=== PATIENT | female | born 1955 | race Caucasian/White ===

== ENCOUNTER 2016-09-20 16:02 | Emergency (ER) | payer MEDICARE, MEDICAID ==
[~2016-09-20] VITALS: Ht 162.6 cm; Wt 69.9 kg
[~2016-09-20 16:02] MED LIST: LEVO25TA7 PO
[2016-09-20 16:06] VITALS: BP 137/91
== END 2016-09-20 16:24 | disposition home or self-care (01) ==
LOC: ER 16:03
DX: Z00.00 Encounter for general adult medical examination without abnormal findings (principal); Z76.0 Encounter for issue of repeat prescription; E03.9 Hypothyroidism, unspecified; F32.9 Major depressive disorder, single episode, unspecified; F41.9 Anxiety disorder, unspecified; F20.9 Schizophrenia, unspecified
CPT/HCPCS: 99281; A4606; Z7502; Z7610

== ENCOUNTER 2016-09-25 18:46 | Emergency (ER) | payer MEDICARE, MEDICAID ==
[~2016-09-25] VITALS: Ht 162.6 cm; Wt 65.8 kg
--- NOTE | 2016-09-25 18:55 | NUR ---
PATIENT BIB RA D/T NAUSEA / VOMITING AT HOME. PATIENTS VITALS REMAIN STABLE. A/OX 3. NO SOB. PATIENT PROVIDED WITH COMFORT AND SAFETY MEASURES. AWAITING MD ORDERS.
[2016-09-25] MEDS ORDERED: LORAZEPAM 1 MG TABLET ONE (18:58)
[2016-09-25] MEDS ORDERED: LORAZEPAM 1 MG TABLET PO ONE (19:00)
[2016-09-25] MEDS ORDERED: ONDANSETRON HCL 4 MG/5 ML SOLUTION ONE (19:03)
--- NOTE | 2016-09-25 19:13 | NUR ---
MEDICATED PATIENT WITH ORAL ATIVAN AND ZOFRAN. TOLERATED WELL. NO VOMITING CURRENTLY, BUT STILL C/O NAUSEA. ENDORSED TO EVELYN MCKAY FOR TOMASA
[2016-09-25] MEDS ORDERED: ONDANSETRON HCL 4 MG/5 ML SOLUTION PO ONE (19:30)
--- NOTE | 2016-09-25 20:01 | NUR ---
Patient discharged to home in stable condition. Written and verbal after care instructions given. Patient verbalizes understanding of instruction. Patient is ambulatory with steady gait, no further complaints.
[2016-09-25 20:02] VITALS: BP 138/74
== END 2016-09-25 20:02 | disposition home or self-care (01) ==
LOC: ER 18:47
DX: F41.9 Anxiety disorder, unspecified (principal); F20.9 Schizophrenia, unspecified; F32.9 Major depressive disorder, single episode, unspecified; E03.9 Hypothyroidism, unspecified; Z88.0 Allergy status to penicillin; Z88.1 Allergy status to other antibiotic agents
CPT/HCPCS: 71010; 93005; 99284; A4606; Q0162; Z7610

== ENCOUNTER 2018-07-11 15:23 | Emergency (ER) | payer MEDICARE, MEDICAID ==
[~2018-07-11] VITALS: Ht 165.1 cm; Wt 70.3 kg
--- NOTE | 2018-07-11 15:36 | NUR ---
PT BIBFATHER FOR CP X 1WEEK; PT AAOX4, PT ON MONITOR, VSS, NAD NOTED, PENDING MD RODRIGUES
[2018-07-11 15:58] LABS: BASOPHILS % (AUTO) 0.3 % (0.0-2.0); EOSINOPHILS % (AUTO) 0.2 % (0.0-6.0); HEMATOCRIT 45 % (33-45); HEMOGLOBIN 15.8 g/dL (11.5-14.8); LYMPHOCYTES # (AUTO) 2.3 /CMM (0.8-4.8); LYMPHOCYTES % (AUTO) 21.8 % (20.0-44.0); MEAN CORPUSCULAR HGB CONC 36 g/dl (31.0-36.0); MEAN CORPUSCULAR VOLUME 86 fL (82-100); MONOCYTES # (AUTO) 1.6 /CMM (0.1-1.30); MONOCYTES % (AUTO) 15.2 % (2.0-12.0); NEUTROPHILS # (AUTO) 6.5 /CMM (1.8-8.9); NEUTROPHILS % (AUTO) 62.5 % (43.0-81.0); PLATELET COUNT (AUTO) 324 /CMM (150-450); RED BLOOD CELL COUNT(AUTO) 5.18 MIL/uL (4.0-5.2); WHITE BLOOD COUNT (AUTO) 10.4 K/uL (4.3-11.0)
[2018-07-11] MEDS ORDERED: IV NS 0.9% 1,000 ML BAG IV ONE ×2 (16:00→17:30)
[2018-07-11] MEDS ORDERED: ONDANSETRON HCL/PF 4 MG/2 ML VIAL IVP ONE (16:00)
[2018-07-11] MEDS ORDERED: ONDANSETRON HCL/PF 4 MG/2 ML VIAL ONE (16:04)
[2018-07-11 16:06] LABS: CALCIUM, SERUM 9.7 mg/dL (8.5-10.1); CARBON DIOXIDE 23 mmol/L (21-32); CHLORIDE 93 mmol/L (98-107); CREATININE 0.8 mg/dL (0.6-1.3); GLUCOSE 125 mg/dL (74-106); POTASSIUM 3.1 mmol/L (3.5-5.1); SODIUM SERUM 128 mmol/L (136-145); UREA NITROGEN, BLOOD 16 mg/dL (7-18)
[2018-07-11 16:19] LABS: ALANINE AMINOTRANSFERASE 72 U/L (12-78); ALBUMIN 3.6 g/dL (3.4-5.0); ALKALINE PHOSPHATASE 57 U/L (46-116); ASPARTATE AMINOTRANSFERASE 43 U/L (15-37); B-TYPE NATRIURETIC PEPTIDE 69 PG/ML (0-125); BILIRUBIN,DIRECT 0.1 mg/dL (0.0-0.2); BILIRUBIN,TOTAL 0.6 mg/dL (0.2-1.0); TOTAL PROTEIN, SERUM 7.6 g/dL (6.4-8.2)
[2018-07-11] MEDS ORDERED: IV NS 0.9% 250 ML IV ONE (16:21)
[2018-07-11] MEDS ORDERED: CT SWABBABLE VALVE TRANS SET 1 EA INFUS.SET MC ONE (16:21)
[2018-07-11] MEDS ORDERED: IOHEXOL-350 100 ML VIAL IV ONE (16:21)
[2018-07-11 16:57] LABS: LYMPHOCYTES % (MANUAL) 28 % (16-48); MONOCYTES % (MANUAL) 10 % (0-11.0); NEUTROPHILS % (MANUAL) 62 (42-76)
[2018-07-11 16:59] LABS: D-DIMER 1.46 mg/L(FEU (0.17-0.50)
[2018-07-11] MEDS ORDERED: LORAZEPAM INJ 2 MG/ML VIAL IV ONE (17:30)
[2018-07-11] MEDS ORDERED: POTASSIUM CHLORIDE 20 MEQ TAB.PRT.SR PO ONE ×2 (17:30→17:47)
[2018-07-11] MEDS ORDERED: LORAZEPAM INJ 2 MG/ML VIAL ONE (17:48)
[2018-07-11 18:41] LABS: THYROID STIMULATING HORMONE 0.143 uIU/mL (0.358-3.74)
[2018-07-11] MEDS ORDERED: METOPROLOL TARTRATE INJ 5 MG/5 ML AMPUL ONE (19:09)
[2018-07-11] MEDS ORDERED: METOPROLOL TARTRATE INJ 5 MG/5 ML AMPUL IV ONE (19:30)
--- NOTE | 2018-07-11 19:59 | NUR ---
Patient discharged to home in stable condition. Written and verbal after care instructions given. Patient verbalizes understanding of instruction. IV removed. Catheter intact and site benign. Pressure and 4x4 applied to site. No bleeding noted.
[2018-07-11 20:01] VITALS: BP 133/76
== END 2018-07-11 20:03 | disposition home or self-care (01) ==
LOC: ER 15:28
DX: F41.9 Anxiety disorder, unspecified (principal); E05.90 Thyrotoxicosis, unspecified without thyrotoxic crisis or storm; K21.9 Gastro-esophageal reflux disease without esophagitis; R00.0 Tachycardia, unspecified; F20.9 Schizophrenia, unspecified; F32.9 Major depressive disorder, single episode, unspecified; Z88.0 Allergy status to penicillin; Z88.8 Allergy status to other drugs, medicaments and biological substances; Z79.899 Other long term (current) drug therapy
CPT/HCPCS: 36415; 71045; 71275; 80048; 80076; 83690; 83880; 84439; 84443; 84484; 85025; 85378; 85730; 93005; 96361; 96374; 96375; 99284; J2060; J2405; J3490; J7030 ×2; J7050; Q9967

== ENCOUNTER 2018-07-13 11:03 | Emergency (ER) | payer MEDICARE, MEDICAID ==
[~2018-07-13] VITALS: Ht 162.6 cm; Wt 71.2 kg
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
--- NOTE | 2018-07-13 11:45 | NUR ---
ERMD AT BEDSIDE FOR EVAL.
--- NOTE | 2018-07-13 11:50 | NUR ---
LIVESTOCK TRUCKER AT BEDSIDE FOR BLOOD DRAW.
--- NOTE | 2018-07-13 11:58 | NUR ---
PT TO RADIOLOGY FOR HEAD CT SCAN VIA [facility].
[2018-07-13 12:00] LABS: BASOPHILS % (AUTO) 0.8 % (0.0-2.0); EOSINOPHILS % (AUTO) 0.2 % (0.0-6.0); HEMATOCRIT 41 % (33-45); HEMOGLOBIN 14.2 g/dL (11.5-14.8); LYMPHOCYTES # (AUTO) 1.6 /CMM (0.8-4.8); LYMPHOCYTES % (AUTO) 26.6 % (20.0-44.0); MEAN CORPUSCULAR HGB CONC 34 g/dl (31.0-36.0); MEAN CORPUSCULAR VOLUME 88 fL (82-100); MONOCYTES # (AUTO) 0.8 /CMM (0.1-1.30); MONOCYTES % (AUTO) 12.5 % (2.0-12.0); NEUTROPHILS # (AUTO) 3.6 /CMM (1.8-8.9); NEUTROPHILS % (AUTO) 59.9 % (43.0-81.0); PLATELET COUNT (AUTO) 238 /CMM (150-450); RED BLOOD CELL COUNT(AUTO) 4.71 MIL/uL (4.0-5.2); WHITE BLOOD COUNT (AUTO) 6.1 K/uL (4.3-11.0)
[2018-07-13] MEDS ORDERED: IV NS 0.9% 1,000 ML BAG IV ONE ×2 (12:00→19:00)
[2018-07-13 12:09] LABS: CALCIUM, SERUM 8.8 mg/dL (8.5-10.1); CREATININE 0.7 mg/dL (0.6-1.3); POTASSIUM 3.2 mmol/L (3.5-5.1)
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
--- NOTE | 2018-07-13 13:43 | NUR ---
FAXED REPORTS, AND FACESHEET TO ABELINO @[phone]
--- NOTE | 2018-07-13 14:14 | NUR ---
ATTEMPTED TO CALL BROTHERVLAD,PHONE IS FULL AND UNABLE TO LEAVE A MESSAGE
[2018-07-13] MEDS ORDERED: LORAZEPAM INJ 2 MG/ML VIAL ONE ×2 (14:41→19:13)
--- NOTE | 2018-07-13 14:44 | NUR ---
PT STILL NOTED TO BE TACHYCARDIC AND HYPERTENSIVE. DR SALINAS AWARE. MEDICATED ORDERED.
--- NOTE | 2018-07-13 14:48 | NUR ---
SPOKE WITH ABELINO; PT GOING TO ROOM [facility]-2. CALL [phone] [phone] TO GIVE REPORT. CALL BACK NUMBER FOR ABELINO .
[2018-07-13] MEDS ORDERED: LORAZEPAM INJ 2 MG/ML VIAL IV ONE ×2 (15:00→19:00)
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
--- NOTE | 2018-07-13 17:37 | NUR ---
CALL FROM ABELINO FROM [facility],[phone], ACCEPTED BY DR STEPHENSON, RETORT LOADER CONSULTING,REPORT TO [phone]
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
--- NOTE | 2018-07-13 17:49 | NUR ---
REPORT GIVEN TO RAINER MCKAY AT [facility]. AWAITING TRANSFER TO FLOOR.
--- NOTE | 2018-07-13 19:17 | NUR ---
REPROT TO JR MCKAY FOR TOMASA.
--- NOTE | 2018-07-13 19:28 | NUR ---
RAMIREZ FROM [facility] CALLED WITH NEW ETA OF 2129.
[2018-07-13] MEDS ORDERED: HALOPERIDOL 1 MG TABLET PO ONE (19:30)
[2018-07-13] MEDS ORDERED: BENZTROPINE MESYLATE (1 MG) 1 MG TABLET PO ONE (19:30)
[2018-07-13] MEDS ORDERED: HALOPERIDOL 5 MG TABLET ONE (19:35)
[2018-07-13] MEDS ORDERED: BENZTROPINE MESYLATE (1 MG) 1 MG TABLET ONE (19:35)
--- NOTE | 2018-07-13 19:40 | NUR ---
PT REFUSED MEDICATION. AWARE.
[2018-07-13] MEDS ORDERED: METOPROLOL TARTRATE INJ 5 MG/5 ML AMPUL IV ONE (21:30)
--- NOTE | 2018-07-13 21:40 | NUR ---
CALLED [facility]; SECOND DELAY OF ETA OF 30 MINS.
[2018-07-13] MEDS ORDERED: METOPROLOL TARTRATE INJ 5 MG/5 ML AMPUL ONE (22:01)
[2018-07-13 22:15] VITALS: BP 116/88
--- NOTE | 2018-07-13 22:20 | NUR ---
AMAURI HERE PARTS CLERK PLANT MAINTENANCE. REPORT GIVEN TO FREDERIC FROM [facility] FOR TOMASA.
== END 2018-07-13 22:51 | disposition short-term general hospital (02) ==
LOC: ER 11:10
DX: G93.40 Encephalopathy, unspecified (principal); G93.9 Disorder of brain, unspecified; R94.31 Abnormal electrocardiogram [ECG] [EKG]; F20.9 Schizophrenia, unspecified; F32.9 Major depressive disorder, single episode, unspecified; F41.9 Anxiety disorder, unspecified; E03.9 Hypothyroidism, unspecified; Z88.0 Allergy status to penicillin; Z88.8 Allergy status to other drugs, medicaments and biological substances; Z79.899 Other long term (current) drug therapy
CPT/HCPCS: 36415; 70450; 71045; 80048; 80305; 80307; 85025; 93005; 96361; 96374; 96376; 99285; A6402; J2060 ×2; J7030 ×2; G0480; J3490

== ENCOUNTER 2018-10-21 18:04 | Inpatient (IN) | payer MEDICARE, MEDICAID ==
[~2018-10-21] VITALS: Ht 162.6 cm; Wt 72.6 kg
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
[2018-10-21 18:40] LABS: BASOPHILS % (AUTO) 0.6 % (0.0-2.0); EOSINOPHILS % (AUTO) 1.2 % (0.0-6.0); HEMATOCRIT 40 % (33-45); HEMOGLOBIN 13.3 g/dL (11.5-14.8); LYMPHOCYTES # (AUTO) 1.2 /CMM (0.8-4.8); LYMPHOCYTES % (AUTO) 31.7 % (20.0-44.0); MEAN CORPUSCULAR HGB CONC 34 g/dl (31.0-36.0); MEAN CORPUSCULAR VOLUME 86 fL (82-100); MONOCYTES # (AUTO) 0.4 /CMM (0.1-1.30); MONOCYTES % (AUTO) 10.7 % (2.0-12.0); NEUTROPHILS # (AUTO) 2.1 /CMM (1.8-8.9); NEUTROPHILS % (AUTO) 55.8 % (43.0-81.0); PLATELET COUNT (AUTO) 208 /CMM (150-450); RED BLOOD CELL COUNT(AUTO) 4.59 MIL/uL (4.0-5.2); WHITE BLOOD COUNT (AUTO) 3.8 K/uL (4.3-11.0)
[2018-10-21 18:56] LABS: ACETAMINOPHEN < 2 ug/ml (10-30); ALANINE AMINOTRANSFERASE 23 U/L (12-78); ALBUMIN 3.6 g/dL (3.4-5.0); ALCOHOL, BLOOD < 3 mg/dL (0-0); ALKALINE PHOSPHATASE 76 U/L (46-116); ASPARTATE AMINOTRANSFERASE 18 U/L (15-37); BILIRUBIN,DIRECT 0.1 mg/dL (0.0-0.2); BILIRUBIN,TOTAL 0.7 mg/dL (0.2-1.0); CALCIUM, SERUM 9.1 mg/dL (8.5-10.1); CARBON DIOXIDE 29 mmol/L (21-32); CHLORIDE 103 mmol/L (98-107); CREATININE 0.6 mg/dL (0.6-1.3); GLUCOSE 107 mg/dL (74-106); SALICYLATE 1.4 mg/dL (2.8-20.0); SODIUM SERUM 138 mmol/L (136-145); TOTAL PROTEIN, SERUM 7.3 g/dL (6.4-8.2); UREA NITROGEN, BLOOD 5 mg/dL (7-18)
[2018-10-21 19:02] LABS: APPEARANCE,URINE Clear (CLEAR); BILIRUBIN,URINE Negative (NEGATIVE); BLOOD, URINE Negative Ery/uL (NEGATIVE); COLOR,URINE Yellow (YELLOW); KETONES,URINE Negative (NEGATIVE); LEUKOCYTE ESTERASE ,URINE Negative (NEGATIVE); NITRITE, URINE Negative (NEGATIVE); PH,URINE 7.5 (5.0-8.0); PROTEIN,URINE Negative (NEGATIVE); UGLUCOSE Negative (NEGATIVE); UROBILINOGEN,URINE 0.2 EU/dL (0.2)
--- NOTE | 2018-10-21 19:19 | NUR ---
ENDORSED TO ABBE MCKAY FOR TOMASA.
--- NOTE | 2018-10-21 19:44 | NUR ---
PINKY ETA 1 HR
--- NOTE | 2018-10-21 21:57 | NUR ---
GPS 213-A
--- NOTE | 2018-10-21 22:05 | NUR ---
REPORT GIVEN TO RENATA
[2018-10-21 22:30] VITALS: BP 145/85
[2018-10-21] MEDS ORDERED: ZOLPIDEM TARTRATE 5 MG TABLET PO PRN (22:30)
[2018-10-21] MEDS ORDERED: MAGNESIUM HYDROXIDE 30 ML UDC PO PRN (22:30)
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
[2018-10-21] MEDS ORDERED: PROP10TA10 PO (23:45)
[2018-10-21] MEDS ORDERED: GABA-534 PO (23:45)
[2018-10-21] MEDS ORDERED: ARIP15TA3 PO (23:45)
[2018-10-21] MEDS ORDERED: HYDR-4384 PO (23:45)
--- NOTE | 2018-10-22 01:21 | NUR ---
AWAKE, NOT SLEEPING, OFFERED SLEEPING PILL, REFUSED. PATIENT STATED, " I DON'T TAKE ANY MEDICATION."
[2018-10-22 06:49] LABS: BASOPHILS % (AUTO) 0.5 % (0.0-2.0); EOSINOPHILS % (AUTO) 0.9 % (0.0-6.0); HEMATOCRIT 36 % (33-45); HEMOGLOBIN 12.3 g/dL (11.5-14.8); LYMPHOCYTES # (AUTO) 1.9 /CMM (0.8-4.8); LYMPHOCYTES % (AUTO) 41.3 % (20.0-44.0); MEAN CORPUSCULAR HGB CONC 34 g/dl (31.0-36.0); MEAN CORPUSCULAR VOLUME 86 fL (82-100); MONOCYTES # (AUTO) 0.5 /CMM (0.1-1.30); MONOCYTES % (AUTO) 11.5 % (2.0-12.0); NEUTROPHILS # (AUTO) 2.1 /CMM (1.8-8.9); NEUTROPHILS % (AUTO) 45.8 % (43.0-81.0); PLATELET COUNT (AUTO) 188 /CMM (150-450); RED BLOOD CELL COUNT(AUTO) 4.18 MIL/uL (4.0-5.2); WHITE BLOOD COUNT (AUTO) 4.6 K/uL (4.3-11.0)
[2018-10-22 06:53] LABS: CHOLESTEROL 168 mg/dL (<200); HDL CHOLESTEROL 49 mg/dL (40-60); LDL 108 mg/dL (0-99); TRIGLYCERIDES 60 mg/dL (30-150)
[2018-10-22 06:57] LABS: ALBUMIN 3.1 g/dL (3.4-5.0); BILIRUBIN,TOTAL 0.5 mg/dL (0.2-1.0); CALCIUM, SERUM 8.9 mg/dL (8.5-10.1); CREATININE 0.8 mg/dL (0.6-1.3); POTASSIUM 4.3 mmol/L (3.5-5.1); TOTAL PROTEIN, SERUM 6.4 g/dL (6.4-8.2)
[2018-10-22 08:00] VITALS: BP 116/75
[2018-10-22] MEDS: PROPRANOLOL HCL 10 MG TABLET PO SCH ×3 (08:57→17:00)
[2018-10-22] MEDS: LEVOTHYROXINE SODIUM 25 MCG TABLET PO SCH (08:57)
[2018-10-22] MEDS: GABAPENTIN 300 MG CAPSULE PO SCH ×2 (08:57→18:14)
[2018-10-22] MEDS: ACETAMINOPHEN 325 MG TABLET PO PRN ×2 (11:05→18:22)
--- NOTE | 2018-10-22 11:05 | NUR ---
GPS RN NOTES Patient stated mild general body aches. Administered Tylenol 650mg PO. Offered fluids and snacks. Will continue to monitor.
[2018-10-22] MEDS: HYDROCODONE/APAP 5/325MG 1 EACH TABLET PO PRN (12:57)
--- NOTE | 2018-10-22 12:57 | NUR ---
GPS RN NOTES Patient stated 8/10 pain on RIGHT SHOULDER and BILATERAL KNEES. Administered Ruthven 5-325mg PO x 1 tab. Encouraged Patient to lay and rest in bed. Patient states that she wants to continue standing. Offered fluids and snacks. Will continue to monitor.
[2018-10-22 16:00] VITALS: BP 124/81
[2018-10-22] MEDS: risperiDONE 1 MG TABLET PO SCH (18:14)
[2018-10-22] MEDS: BENZTROPINE MESYLATE (1 MG) 1 MG TABLET PO SCH (18:14)
--- NOTE | 2018-10-22 18:22 | NUR ---
GPS RN NOTES Patient stated mild BILATERAL KNEE PAIN. Noted Patient standing near doorway throughout shift. Encouraged Patient to sit/lay down on chair/bed. Patient refused. Administered Tylenol 650mg PO per Patients request. Will continue to monitor.
--- NOTE | 2018-10-22 19:05 | NUR ---
HERLINDA (SISTER) --- FOR ANY MEDICAL HISTORY QUESTIONS YOU MAY CONTACT HERLINDA. FOR CONSENTS CONTACT VLAD (BROTHER).
[2018-10-22] MEDS: LORAZEPAM 0.5 MG TABLET PO PRN (19:58)
[2018-10-23] MEDS: HYDROCODONE/APAP 5/325MG 1 EACH TABLET PO PRN ×2 (05:29→19:56)
[2018-10-23] MEDS: LEVOTHYROXINE SODIUM 25 MCG TABLET PO SCH (07:30)
[2018-10-23 08:00] VITALS: BP 100/74
[2018-10-23] MEDS: ACETAMINOPHEN 325 MG TABLET PO PRN (08:36)
[2018-10-23] MEDS: PROPRANOLOL HCL 10 MG TABLET PO SCH ×3 (08:37→17:54)
[2018-10-23] MEDS: BENZTROPINE MESYLATE (1 MG) 1 MG TABLET PO SCH ×2 (08:37→17:57)
[2018-10-23] MEDS: GABAPENTIN 300 MG CAPSULE PO SCH ×2 (08:37→17:57)
[2018-10-23] MEDS: risperiDONE 1 MG TABLET PO SCH ×2 (08:37→17:57)
[2018-10-23] MEDS ORDERED: OLANZAPINE 10 MG VIAL IM PRN (13:00)
[2018-10-23] MEDS: MAG HYDROX/AL HYDROX/SIMETH 30 ML UDC PO PRN ×2 (13:57→19:57)
[2018-10-23] MEDS: LORAZEPAM 0.5 MG TABLET PO PRN (13:57)
[2018-10-23 16:00] VITALS: BP 108/63
[2018-10-23 20:18] VITALS: BP 95/63
[2018-10-24] MEDS: MAG HYDROX/AL HYDROX/SIMETH 30 ML UDC PO PRN ×2 (00:38→22:51)
[2018-10-24] MEDS: ACETAMINOPHEN 325 MG TABLET PO PRN (01:29)
[2018-10-24 08:00] VITALS: BP 96/63
[2018-10-24] MEDS: LEVOTHYROXINE SODIUM 25 MCG TABLET PO SCH (08:00)
[2018-10-24] MEDS: BENZTROPINE MESYLATE (1 MG) 1 MG TABLET PO SCH ×2 (08:46→17:11)
[2018-10-24] MEDS: GABAPENTIN 300 MG CAPSULE PO SCH ×2 (08:46→17:11)
[2018-10-24] MEDS: risperiDONE 1 MG TABLET PO SCH ×2 (08:47→17:11)
[2018-10-24] MEDS: PROPRANOLOL HCL 10 MG TABLET PO SCH ×3 (08:49→17:00)
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
[2018-10-24] MEDS: LORAZEPAM 0.5 MG TABLET PO PRN (11:46)
--- NOTE | 2018-10-24 11:46 | NUR ---
MS RN NOTES PATIENT BECAME ANXIOUS, ATIVAN GIVEN ORDERED. NO ACUTE DISTRESS NOTED. PATIENT VITAL SIGNS WITHIN NORMAL LIMITS. SAFETY MEASURES IN PLACE. WILL CONTINUE TO MONITOR PATIENT.
--- NOTE | 2018-10-24 13:42 | NUR ---
SW spoke to the pt's brother and conservator, Tavo ([phone]), who stated that he is too busy to handle his sister's case at the time with his radio time salesperson job and taking care of his mother as well. Pt's brother/conservator stated that he would like his sister to be notified and updated regarding the pts care. SW stated that she would contact him regarding her discharge. Pts brother stated that he wants to make sure that she will be stable before discharge.
--- NOTE | 2018-10-24 15:12 | NUR ---
Initial Discharge Plan: Pt currently resides at [facility] located at [address] [place], [place] [address]; . Per pt, she does not want to return to the facility. SW will work with the pt and the MD regarding appropriate discharge planning. SW will form a safe and proper discharge.
--- NOTE | 2018-10-24 15:13 | NUR ---
MARSHALL called the pt's sister, Cuort ([phone]), and discussed the pts initial discharge and treatment plan. She stated that she does not want the pt to be discharged home until she is completely stable which is what the pts brother wanted.
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
[2018-10-24 16:00] VITALS: BP 100/55
[2018-10-24] MEDS: HYDROCODONE/APAP 5/325MG 1 EACH TABLET PO PRN (17:58)
[2018-10-24 20:15] VITALS: BP 88/53
[2018-10-25] MEDS: HYDROCODONE/APAP 5/325MG 1 EACH TABLET PO PRN ×2 (06:08→17:28)
[2018-10-25 08:00] VITALS: BP 98/50
[2018-10-25] MEDS: GABAPENTIN 300 MG CAPSULE PO SCH ×2 (08:35→17:29)
[2018-10-25] MEDS: BENZTROPINE MESYLATE (1 MG) 1 MG TABLET PO SCH ×2 (08:35→17:26)
[2018-10-25] MEDS: risperiDONE 1 MG TABLET PO SCH ×2 (08:35→17:00)
[2018-10-25] MEDS: PROPRANOLOL HCL 10 MG TABLET PO SCH ×3 (08:36→17:00)
[2018-10-25] MEDS: LEVOTHYROXINE SODIUM 25 MCG TABLET PO SCH (08:36)
[2018-10-25] MEDS: MAG HYDROX/AL HYDROX/SIMETH 30 ML UDC PO PRN ×3 (09:55→21:40)
[2018-10-25] MEDS: ACETAMINOPHEN 325 MG TABLET PO PRN ×2 (12:56→20:34)
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
[2018-10-25] MEDS ORDERED: INVEGA 234 MG IM ONE (15:00)
[2018-10-25 16:00] VITALS: BP 105/52
--- NOTE | 2018-10-25 20:34 | NUR ---
RN NOTES ADMINISTERED TYLENOL 650 MG ORDERED FOR HEADACHE, AT PATIENT REQUEST. WILL CONTINUE TO MONITOR.
[2018-10-25 20:36] VITALS: BP 98/71
--- NOTE | 2018-10-25 21:40 | NUR ---
RN NOTES ADMINISTERED MAALOX 30ML ORDERED FOR INDIGESTION AT PATIENT REQUEST. WILL CONTINUE TO MONITOR.
[2018-10-26] MEDS: HYDROCODONE/APAP 5/325MG 1 EACH TABLET PO PRN ×2 (06:48→13:21)
[2018-10-26 08:00] VITALS: BP 112/77
[2018-10-26] MEDS: PROPRANOLOL HCL 10 MG TABLET PO SCH ×3 (09:00→17:00)
--- NOTE | 2018-10-26 10:30 | NUR ---
refused all am meds including psych meds.
[2018-10-26] MEDS: LEVOTHYROXINE SODIUM 25 MCG TABLET PO SCH (10:46)
[2018-10-26] MEDS: BENZTROPINE MESYLATE (1 MG) 1 MG TABLET PO SCH ×2 (10:46→17:00)
[2018-10-26] MEDS: GABAPENTIN 300 MG CAPSULE PO SCH ×2 (10:46→17:00)
[2018-10-26] MEDS: risperiDONE 1 MG TABLET PO SCH ×2 (10:47→17:00)
--- NOTE | 2018-10-26 13:11 | NUR ---
refused bp and inderal at this time.
[2018-10-26 16:00] VITALS: BP 130/78
--- NOTE | 2018-10-26 16:02 | NUR ---
Research Assistant Professor Group Session-- Goal: Patient will attend group being held today from 11am -11:45 in the activities room and participate and/or actively listen to peers and be respectful. Intervention: SW invited patient to attend group session with peers regarding: the goal or positive outcome/s each pt. would like to see happen as a result of their stay in [facility]. SW respected patient�s self-determination and will continue to invite patient to future group sessions. Response: Patient declined to participate in today�s group social media marketing manager session. Plan: Patient will be invited to attend next social media marketing manager group held.
[2018-10-26 19:48] VITALS: BP 126/72
[2018-10-26] MEDS: LORAZEPAM 0.5 MG TABLET PO PRN (20:58)
[2018-10-27 08:00] VITALS: BP 106/69
[2018-10-27] MEDS: PROPRANOLOL HCL 10 MG TABLET PO SCH ×3 (09:00→16:07)
[2018-10-27] MEDS: risperiDONE 1 MG TABLET PO SCH ×2 (09:05→16:06)
[2018-10-27] MEDS: GABAPENTIN 300 MG CAPSULE PO SCH ×2 (09:05→16:06)
[2018-10-27] MEDS: LEVOTHYROXINE SODIUM 25 MCG TABLET PO SCH (09:05)
[2018-10-27] MEDS: BENZTROPINE MESYLATE (1 MG) 1 MG TABLET PO SCH ×2 (09:05→16:06)
[2018-10-27] MEDS: HYDROCODONE/APAP 5/325MG 1 EACH TABLET PO PRN (11:22)
[2018-10-27] MEDS: MAG HYDROX/AL HYDROX/SIMETH 30 ML UDC PO PRN (12:18)
--- NOTE | 2018-10-27 12:44 | NUR ---
MARSHALL faxed a [facility] form to the [facility] with attention to Debbie to the fax number: [phone].
[2018-10-27] MEDS: ACETAMINOPHEN 325 MG TABLET PO PRN ×2 (14:24→20:53)
--- NOTE | 2018-10-27 16:08 | NUR ---
Pt. refused to take Propanolol and saying that her BP is not high. Explined on the importance and still refusing
[2018-10-27 16:41] VITALS: BP 111/64
[2018-10-27 20:00] VITALS: BP 118/68
[2018-10-28 08:00] VITALS: BP 113/71
[2018-10-28] MEDS: risperiDONE 1 MG TABLET PO SCH ×2 (08:40→16:54)
[2018-10-28] MEDS: BENZTROPINE MESYLATE (1 MG) 1 MG TABLET PO SCH ×2 (08:41→16:51)
[2018-10-28] MEDS: GABAPENTIN 300 MG CAPSULE PO SCH ×2 (08:41→16:51)
[2018-10-28] MEDS: HYDROCODONE/APAP 5/325MG 1 EACH TABLET PO PRN ×2 (08:41→16:21)
[2018-10-28] MEDS: LEVOTHYROXINE SODIUM 25 MCG TABLET PO SCH (08:42)
[2018-10-28] MEDS: PROPRANOLOL HCL 10 MG TABLET PO SCH ×3 (08:42→16:54)
[2018-10-28] MEDS: ACETAMINOPHEN 325 MG TABLET PO PRN ×2 (12:13→19:40)
[2018-10-28 16:00] VITALS: BP 123/68
[2018-10-28] MEDS: MAG HYDROX/AL HYDROX/SIMETH 30 ML UDC PO PRN ×2 (16:51→20:59)
--- NOTE | 2018-10-28 17:00 | NUR ---
Pt. refused to take Risperdal and saying that she feel tired after this medication. Patient educated on risks and benefits.Patient still refusing
[2018-10-28] MEDS: LORAZEPAM 0.5 MG TABLET PO PRN (20:21)
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
[2018-10-29] MEDS: HYDROCODONE/APAP 5/325MG 1 EACH TABLET PO PRN ×2 (05:02→09:59)
[2018-10-29 08:00] VITALS: BP 110/75
[2018-10-29] MEDS: PROPRANOLOL HCL 10 MG TABLET PO SCH ×3 (09:00→17:00)
[2018-10-29] MEDS: LEVOTHYROXINE SODIUM 25 MCG TABLET PO SCH (09:59)
[2018-10-29] MEDS: risperiDONE 1 MG TABLET PO SCH ×2 (09:59→17:22)
[2018-10-29] MEDS: BENZTROPINE MESYLATE (1 MG) 1 MG TABLET PO SCH ×2 (09:59→17:22)
[2018-10-29] MEDS: GABAPENTIN 300 MG CAPSULE PO SCH ×2 (09:59→17:22)
[2018-10-29 16:00] VITALS: BP 100/56
[2018-10-29 19:54] VITALS: BP 118/79
[2018-10-29] MEDS: MAG HYDROX/AL HYDROX/SIMETH 30 ML UDC PO PRN (21:10)
[2018-10-30] MEDS: HYDROCODONE/APAP 5/325MG 1 EACH TABLET PO PRN ×2 (03:03→16:15)
[2018-10-30 08:00] VITALS: BP 109/75
[2018-10-30] MEDS: PROPRANOLOL HCL 10 MG TABLET PO SCH ×3 (09:00→16:16)
[2018-10-30] MEDS: risperiDONE 1 MG TABLET PO SCH ×2 (09:03→16:14)
[2018-10-30] MEDS: LEVOTHYROXINE SODIUM 25 MCG TABLET PO SCH (09:03)
[2018-10-30] MEDS: GABAPENTIN 300 MG CAPSULE PO SCH ×2 (09:03→16:15)
[2018-10-30] MEDS: BENZTROPINE MESYLATE (1 MG) 1 MG TABLET PO SCH ×2 (09:05→16:15)
[2018-10-30] MEDS: MAG HYDROX/AL HYDROX/SIMETH 30 ML UDC PO PRN ×3 (10:18→21:30)
[2018-10-30] MEDS: ACETAMINOPHEN 325 MG TABLET PO PRN (11:51)
--- NOTE | 2018-10-30 16:16 | NUR ---
RN NOTES ADMINISTERED NARCO 5/325 MG PO PRN FOR BILATERAL KNEES PAIN 12/13 PER PATIENT REQUEST, V/S TAKEN BP 97/59, P-79, CONTINUED MONITORING.
[2018-10-30 16:29] VITALS: BP 97/59
[2018-10-30 20:17] VITALS: BP 123/73
--- NOTE | 2018-10-30 22:00 | NUR ---
RN notes Pt refused to have weekly assessment skin pictures done.
[2018-10-31] MEDS: MAG HYDROX/AL HYDROX/SIMETH 30 ML UDC PO PRN ×3 (01:35→19:51)
--- NOTE | 2018-10-31 01:35 | NUR ---
RN notes Pt is complaining of heartburn after drinking an orange juice. Administered Maalox 30 ml as ordered per Pt request. Will continue to monitor.
[2018-10-31 08:00] VITALS: BP 108/74
[2018-10-31] MEDS: PROPRANOLOL HCL 10 MG TABLET PO SCH ×3 (08:32→17:00)
[2018-10-31] MEDS: GABAPENTIN 300 MG CAPSULE PO SCH ×2 (08:32→17:10)
[2018-10-31] MEDS: risperiDONE 1 MG TABLET PO SCH ×2 (08:33→17:11)
[2018-10-31] MEDS: BENZTROPINE MESYLATE (1 MG) 1 MG TABLET PO SCH ×2 (08:33→17:10)
[2018-10-31] MEDS: HYDROCODONE/APAP 5/325MG 1 EACH TABLET PO PRN ×2 (08:33→20:43)
[2018-10-31] MEDS: LEVOTHYROXINE SODIUM 25 MCG TABLET PO SCH (08:33)
--- NOTE | 2018-10-31 08:42 | NUR ---
RN NOTE: PATIENT REFUSEDE HER 0900 BP MED WITH BP 108/74. STATES SHE NEVER TOOK BP MEDS AT HOME.
--- NOTE | 2018-10-31 08:42 | NUR ---
RN NOTE: PATIENT WAS COMPLAINING OF PAIN 11/12. NORCO GIVEN. WILL RE-ASSESS PAIN.
--- NOTE | 2018-10-31 10:40 | NUR ---
MARSHALL spoke to the pt's brother and conservator, Tavo ([phone]), and informed him that the pt will be receiving her second long acting shot on Wednesday and that there is a projected discharge date for . Pts conservator stated that he would like the pt to be discharged a few days after the shot is given to ensure pts stability. MARSHALL informed him that the discharge date is determined by the pts psychiatrist and if they believe that the pt is stable for discharge. Pts conservator stated that he would like to speak to the pts psychiatrist and MARSHALL stated she would inform him and have him call the next time he is present at the hospital. Addendum: 10/31/18 at 1159 by TRACIE OLIVARES MARSHALL and pts brother and conservator also discussed having a back up option ready to go in case the pt is not appropriate for a discharge back home at the time that the hospital releases her. Pts conservator stated that he wanted the MARSHALL to send a referral to [facility].
--- NOTE | 2018-10-31 11:20 | NUR ---
SW called the pt's sister, Court ([phone]), and she was informed of the discharge plan. SW informed her that the pt will be receiving her second long acting shot on WednesdayNovember 02 and that the hospital will be aiming to discharge a few days later. Pt stated that she is frustrated with her current family situation because the pts conservator will not return her phone call and that the plan to have the pt return to their home is not a viable or safe plan in her opinion. Pts sister stated that she wants to set up a meeting with the interdisciplinary team regarding the pts treatment but stated that she will be out of town starting Wednesday. SW informed her that the pts psychiatrist and conservator will have a phone meeting the following day to determine the discharge plan and so the meeting may not be able to take place by the time the pts sister is out of town. Pts sister stated that she has been feeling extremely frustrated and that she has been putting in more effort to help her family than she is seeing in return. SW encouraged her to take time to herself and let the pts conservator handle the case as it is his duty and legal right to do so.
--- NOTE | 2018-10-31 11:44 | NUR ---
RN NOTE: PATIENT STATED SHE WAS FEELING HEARTBURN, PRN MAALOX GIVEN.
--- NOTE | 2018-10-31 12:01 | NUR ---
RN NOTE: PATIENT REFUSED 1200 HTN MED. STATES THAT SHES NEVER TAKEN IT AND SHE DOESNT HAVE ISSUES WITH BLOOD PRESSURE. EXPLAINED THE IMPORTANCE OF THE MEDICATION AND PATIENT CONTINUE TO REFUSE.
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
--- NOTE | 2018-10-31 14:31 | NUR ---
MARSHALL faxed a referral to [facility] to the fax number: [phone].
--- NOTE | 2018-10-31 14:49 | NUR ---
MARSHALL faxed a [facility] 341 form to [facility] Public [facility] to the fax number: [phone].
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
[2018-10-31 16:00] VITALS: BP 123/82
[2018-10-31] MEDS: ACETAMINOPHEN 325 MG TABLET PO PRN (17:11)
--- NOTE | 2018-10-31 17:12 | NUR ---
RN NOTE: PATIENT COMPLAINS OF PAIN 8/10 ON BILATERAL KNEES. PRN TYLENOL GIVEN. PATIENT ALSO REFUSED HER 1700 BLOOD PRESSURE MEDICATION.
--- NOTE | 2018-10-31 18:40 | NUR ---
RN NOTE: PATIENT COMPLAINING OF BILATERAL KNEE PAIN 8/; TYLENOL 650 MG PO PRN GIVEN PER PATIENT'S REQUEST.
[2018-10-31 20:00] VITALS: BP 131/73
[2018-11-01 08:00] VITALS: BP 132/71
[2018-11-01] MEDS: LEVOTHYROXINE SODIUM 25 MCG TABLET PO SCH (08:44)
[2018-11-01] MEDS: BENZTROPINE MESYLATE (1 MG) 1 MG TABLET PO SCH ×2 (08:45→21:34)
[2018-11-01] MEDS: risperiDONE 1 MG TABLET PO SCH (08:45)
[2018-11-01] MEDS: GABAPENTIN 300 MG CAPSULE PO SCH ×2 (08:45→16:05)
[2018-11-01] MEDS: PROPRANOLOL HCL 10 MG TABLET PO SCH ×3 (08:45→16:06)
[2018-11-01] MEDS: HYDROCODONE/APAP 5/325MG 1 EACH TABLET PO PRN ×2 (09:59→19:54)
[2018-11-01] MEDS ORDERED: INVEGA 156 MG IM ONE (10:30)
--- NOTE | 2018-11-01 10:34 | NUR ---
SECOND DOSE OF INVEGA GIVEN TODAY PER ORDER FROM SARA RICKETTS D/C
[2018-11-01] MEDS: MAG HYDROX/AL HYDROX/SIMETH 30 ML UDC PO PRN ×3 (12:08→20:41)
--- NOTE | 2018-11-01 13:37 | NUR ---
SW received a call from [facility] and was informed that the pt was not accepted.
--- NOTE | 2018-11-01 13:38 | NUR ---
MASRHALL faxed a referral to [facility] with attention to Emily to the fax number: [phone].
--- NOTE | 2018-11-01 14:16 | NUR ---
Debbie ([phone]) from [facility] contacted the and informed her that the pt was accepted to their facility.
--- NOTE | 2018-11-01 15:54 | NUR ---
GROUP NOTE: SW prompted pt to attend group therapy but pt refused stating she di not want to go to group.
[2018-11-01 16:00] VITALS: BP 104/69
--- NOTE | 2018-11-01 19:26 | NUR ---
GPS RN NOTE, RECEIVED PATIENT AWAKE AND IN BED, NO S/S OR COMPLAINTS OF PAIN AT THIS TIME. PATIENT IS DISPLAYING NO S/S OF APPARENT DISTRESS AT THIS TIME. PATIENT BREATHING IS UNLABORED WITH EQUAL RISE AND FALL OF THE CHEST. PATIENT IS ALERT AND ORIENTED X 1 ON ROOM AIR WITH A SPO2 OF 95 %. PATIENT IS MED COMPLAINT, DISORGANIZED, ANXIOUS, COOPERATIVE, HYPERVERBAL, AND NEEDS REORIENTATION. PATIENT DENIES SUICIDE AND HOMICIDAL IDEATIONS AT THIS TIME. PATIENT ASSISTED WITH TURNING AND REPOSITIONING Q2HR AND PRN FOR COMFORT AND CIRCULATION. PATIENT HAS NO NEEDS AT THIS TIME. PATIENT EDUCATED ON THE USE OF THE CALL OGLESBY. PATIENT BED SIDE RAILS ARE UP X 2 FOR SAFETY, BED IS LOCKED, AND LOW WILL CONTINUE TO MONITOR AND MAINTAIN SAFETY.
--- NOTE | 2018-11-01 19:54 | NUR ---
GPS RN NOTE, PATIENT HAS A COMPLAINT OF CHRONIC BILATERAL KNEE PAIN AT 6 OUT 10 ON THE PAIN SCALE AND IS REQUESTING NORCO AT THIS TIME. PATIENT VITAL SIGNS ARE STABLE. GAVE NORCO 5 - 325 1 TAB PO BID ORDERED. WILL REASSESS PAIN AND I WILL CONTINUE TO MONITOR THIS PATIENT.
[2018-11-01 20:10] VITALS: BP 116/73
--- NOTE | 2018-11-01 20:41 | NUR ---
GPS RN NOTE, PATIENT HAS A COMPLAINT OF INDIGESTION AND IS REQUESTING MAALOX AT THIS TIME. PATIENT VITAL SIGNS ARE STABLE. GAVE MAALOX 30ML PO Q4HR PRN ORDERED. WILL REASSESS FOR INDIGESTION AND I WILL CONTINUE TO MONITOR THIS PATIENT.
[2018-11-01] MEDS: ACETAMINOPHEN 325 MG TABLET PO PRN (22:20)
--- NOTE | 2018-11-01 22:20 | NUR ---
GPS RN NOTE, PATIENT HAS A COMPLAINT OF BILATERAL FOOT PAIN AT 3 OUT 10 ON THE PAIN SCALE AND IS REQUESTING TYLENOL AT THIS TIME. PATIENT VITAL SIGNS ARE STABLE. GAVE TYLENOL 650 MG PO Q6HR PRN ORDERED. WILL REASSESS FOR PAIN AND I WILL CONTINUE TO MONITOR THIS PATIENT.
[2018-11-02] MEDS: HYDROCODONE/APAP 5/325MG 1 EACH TABLET PO PRN ×2 (06:02→14:37)
--- NOTE | 2018-11-02 06:02 | NUR ---
GPS RN NOTE, PATIENT HAS A COMPLAINT OF CHRONIC LOWER BACK PAIN AT 6 OUT 10 ON THE PAIN SCALE AND IS REQUESTING NORCO AT THIS TIME. PATIENT VITAL SIGNS ARE STABLE. GAVE NORCO 5 - 325 1 TAB PO BID ORDERED. WILL REASSESS PAIN AND I WILL CONTINUE TO MONITOR THIS PATIENT.
[2018-11-02 08:00] VITALS: BP 108/69
[2018-11-02] MEDS: GABAPENTIN 300 MG CAPSULE PO SCH ×2 (08:35→16:35)
[2018-11-02] MEDS: LEVOTHYROXINE SODIUM 25 MCG TABLET PO SCH (08:35)
[2018-11-02] MEDS: PROPRANOLOL HCL 10 MG TABLET PO SCH ×3 (08:36→17:00)
--- NOTE | 2018-11-02 08:36 | NUR ---
RN NOTE: 0900 BP MEDS HELD D/T BP 108/69
--- NOTE | 2018-11-02 09:12 | NUR ---
MARSHALL called the pt's brother and conservator, Tavo ([phone]), but his mailbox was full and the SW was unable to leave a message.
--- NOTE | 2018-11-02 10:26 | NUR ---
SW called the pt's brother and conservator, Tavo ([phone]), and informed him that the pt is going to be discharged on Wednesday and he stated that he will only be able to pick her up late in the afternoon because he works. SW informed him that [facility] denied the pt but [facility] accepted. Pts conservator stated that he is mainly concerned about her medication regime. He stated that the pt is under the impression that she only needs to take the monthly shot and does not need her medications. SW stated that she would inform the psychiatrist to educate the pt on her medications. SW also informed him that she would be following up with the pts primary psychiatrist. Pts conservator stated that he wanted the SW to inform the psychiatrist that the pt has two beers every day, drinks a lot of diet soda and that she takes Ativan and Benadryl when she feels anxious. SW stated that she would call him back with information.
[2018-11-02] MEDS: MAG HYDROX/AL HYDROX/SIMETH 30 ML UDC PO PRN ×2 (11:17→20:30)
--- NOTE | 2018-11-02 11:20 | NUR ---
RN NOTE: PATIENT COMPLAINING OF HEARTBURN, PRN MAALOX GIVEN PO, WILL RE-ASSESS.
[2018-11-02] MEDS: ACETAMINOPHEN 325 MG TABLET PO PRN (12:45)
--- NOTE | 2018-11-02 12:46 | NUR ---
RN NOTE: PATIENT WAS COMPLAINING OF PAIN 8/10 ON HER BILATERAL KNEES AND WANTED TYLENOL. PRN TYLENOL 650 MG PO GIVEN. WILL CONTINUE TO MONITOR PAIN.
--- NOTE | 2018-11-02 13:50 | NUR ---
RN NOTE: PATIENT REFUSED HER 1300 BP MEDICATION. STATED BENEFITS OF MED AND PATIENT CONTINUES TO REFUSE.
--- NOTE | 2018-11-02 14:38 | NUR ---
RN NOTE: PATIENT COMPLAINING 8/10 GENERALIZED PAIN "ALL OVER BODY". NORCO 5-325 GIVEN. WILL CONTINUE TO MONITOR PAIN.
[2018-11-02] MEDS ORDERED: INVEGA 156 MG IM ONE (15:00)
--- NOTE | 2018-11-02 15:32 | NUR ---
GROUP NOTE: SW prompted pt to attend group therapy but pt refused stating she did not want to go to group and asked when she was leaving.
[2018-11-02 16:00] VITALS: BP 112/71
--- NOTE | 2018-11-02 17:07 | NUR ---
RN NOTE: PATIENT REFUSED HER 1700 BP MEDS. EXPLAINED THE IMPORTANCE, PATIENT CONTINUES TO REFUSE.
[2018-11-02 20:27] VITALS: BP 102/68
[2018-11-02] MEDS: BENZTROPINE MESYLATE (1 MG) 1 MG TABLET PO SCH (21:30)
[2018-11-03] MEDS: ACETAMINOPHEN 325 MG TABLET PO PRN ×2 (00:53→14:28)
[2018-11-03 08:00] VITALS: BP 104/57
[2018-11-03] MEDS: LEVOTHYROXINE SODIUM 25 MCG TABLET PO SCH (08:54)
[2018-11-03] MEDS: GABAPENTIN 300 MG CAPSULE PO SCH ×2 (08:54→17:08)
[2018-11-03] MEDS: MAG HYDROX/AL HYDROX/SIMETH 30 ML UDC PO PRN ×3 (08:56→18:35)
[2018-11-03] MEDS: PROPRANOLOL HCL 10 MG TABLET PO SCH ×3 (09:00→17:00)
--- NOTE | 2018-11-03 09:07 | NUR ---
MARSHALL called Dr. Carlos Parikh's office and spoke to Erlinda who was able to help the SW schedule an appointment for the pt for 11/08/18 at 8:30AM. MARSHALL asked for the fax number as well to send over the appropriate paperwork.
--- NOTE | 2018-11-03 09:19 | NUR ---
MARSHALL faxed updated notes to Dr. Parikh to the fax number: [phone].
[2018-11-03] MEDS: HYDROCODONE/APAP 5/325MG 1 EACH TABLET PO PRN ×2 (09:37→21:44)
--- NOTE | 2018-11-03 10:09 | NUR ---
MARSHALL called the pt's brother and conservator, Tavo ([phone]), and informed him that the pt has an appointment set for 11/08/18 at 8:30AM. He stated that was acceptable and that he would ensure that the pt would be at the appointment. MARSHALL stated that she would also be sending over an email about the medications as requested. He stated that he would also like a note from the psychiatrist stating that the pt cannot have alcohol while taking her prescription medications.
--- NOTE | 2018-11-03 15:51 | NUR ---
Group Note: SW prompted pt to attend group therapy but pt refused stating she did not want to go to group.
[2018-11-03 16:00] VITALS: BP 120/87
[2018-11-03 20:13] VITALS: BP 107/72
[2018-11-03] MEDS: BENZTROPINE MESYLATE (1 MG) 1 MG TABLET PO SCH (21:43)
[2018-11-04 08:00] VITALS: BP 120/72
[2018-11-04] MEDS: GABAPENTIN 300 MG CAPSULE PO SCH (08:56)
[2018-11-04] MEDS: PROPRANOLOL HCL 10 MG TABLET PO SCH ×2 (08:57→13:00)
[2018-11-04] MEDS: LEVOTHYROXINE SODIUM 25 MCG TABLET PO SCH (08:57)
[2018-11-04] MEDS: HYDROCODONE/APAP 5/325MG 1 EACH TABLET PO PRN (09:32)
--- NOTE | 2018-11-04 11:42 | NUR ---
SS Group Goal: Patient will attend group being held today from 10am -10:30 in the activities room and participate and/or actively listen to peers and be respectful. Intervention: SW invited patient to attend group session with peers regarding their support system. SW respected patient�s self-determination and will continue to invite patient to group. Response: Patient declined to participate in today�s group social worker psychiatric session. Plan: Patient will be invited to attend next social worker psychiatric group session held.
--- NOTE | 2018-11-04 12:27 | NUR ---
PT. WITH AN ORDER TO D/C HOME TODAY AND TO FOLLOW UP WITH PSYCH AND MEDICAL DOCTORS. PT. WITHOUT DISTRESS, DENIES SUICIDAL AND HOMICIDAL. BELONGINGS READY AND DISCHARGE PAPERS READY. KENDRA CAMACHO MADE AWARE OF THE DISCHARGE AND PROVIDED A PRESCRIPTIONS.
[2018-11-04] MEDS: ACETAMINOPHEN 325 MG TABLET PO PRN (13:36)
--- NOTE | 2018-11-04 15:27 | NUR ---
Discharge Note: Pt was discharged back to her home located at [address] [place] [id number]; ([phone]). Pts brother and conservator, Tavo ([phone]), picked up the pt at 4pm. Upon discharge, the pt appeared to be in a euthymic mood and presented with an anxious affect. Pt denied both suicidal and homicidal ideation as well as auditory and visual hallucinations. Pt will continue to be under the care of her psychiatrist, Dr. Parikh, located at [address] [place] [id number]; and has an appointment for 11/08/18 at 8:30AM. Pt will also be under the care of her entry level account manager, Dr. Tenorio, located at [address] [place] [id number]; .
[2018-11-04 16:00] VITALS: BP 121/73
--- NOTE | 2018-11-04 16:10 | NUR ---
Pt. left the unit and was picked up by her brought Tavo Gautam. Was instructed on meds to continue at home and verbalizes understanding and advised to make a follow up with psych and medical doctors. Pt. left the unit without distress, ambulatory and escorted by staff to the lobby.
== END 2018-11-04 16:10 | disposition home or self-care (01) | DRG 885 ==
LOC: ER 18:10 → GPS 22:17
PROVIDERS: ADMIT Psychiatry & Neurology Psychiatry; ATTEND Internal Medicine
DX: F20.0 Paranoid schizophrenia (principal); E44.1 Mild protein-calorie malnutrition; F41.9 Anxiety disorder, unspecified; F32.9 Major depressive disorder, single episode, unspecified; E89.0 Postprocedural hypothyroidism; G62.9 Polyneuropathy, unspecified; M19.90 Unspecified osteoarthritis, unspecified site; Z68.27 Body mass index [BMI] 27.0-27.9, adult; E88.09 Other disorders of plasma-protein metabolism, not elsewhere classified; Z91.19 Patient's noncompliance with other medical treatment and regimen; Z88.0 Allergy status to penicillin
CPT/HCPCS: 36415; 80048-TC; 80053-TC; 80061-TC; 80076-TC; 80305; 81000-TC; 84443-TC; 85025-TC; 87081-TC; G0480

== ENCOUNTER 2019-03-22 13:35 | Emergency (ER) | payer MEDICARE, OTHER ==
[~2019-03-22] VITALS: Ht 162.6 cm; Wt 73.5 kg
[~2019-03-22 13:35] MED LIST changes: +GABA-534 PO; +HYDR-4384 PO; +PROP10TA10 PO
--- NOTE | 2019-03-22 13:40 | NUR ---
CAME IN FOR PALPITATIONS x 2 WEEKS, PATIENT DESCRIBES IT PRESSURE. DENIES CHEST PAIN. TO ER BED 4, HOOKED TO MONITOR, CHANGED TO HOSPITAL GOWN, PROVIDED W WARM BLANKET , PATIENT AOX4 , BREATHING EVEN AND UNLABORED. AWAITING MD RODRIGUES.
--- NOTE | 2019-03-22 14:40 | NUR ---
DR RODRIGUEZ AT BEDSIDE
[2019-03-22 14:55] LABS: BASOPHILS % (AUTO) 0.3 % (0.0-2.0); EOSINOPHILS % (AUTO) 0.5 % (0.0-6.0); HEMATOCRIT 40 % (33-45); HEMOGLOBIN 13.6 g/dL (11.5-14.8); LYMPHOCYTES # (AUTO) 1.1 /CMM (0.8-4.8); LYMPHOCYTES % (AUTO) 20.7 % (20.0-44.0); MEAN CORPUSCULAR HGB CONC 34 g/dl (31.0-36.0); MEAN CORPUSCULAR VOLUME 86 fL (82-100); MONOCYTES # (AUTO) 0.4 /CMM (0.1-1.30); MONOCYTES % (AUTO) 7.3 % (2.0-12.0); NEUTROPHILS # (AUTO) 3.9 /CMM (1.8-8.9); NEUTROPHILS % (AUTO) 71.2 % (43.0-81.0); PLATELET COUNT (AUTO) 171 /CMM (150-450); RED BLOOD CELL COUNT(AUTO) 4.71 MIL/uL (4.0-5.2); WHITE BLOOD COUNT (AUTO) 5.5 K/uL (4.3-11.0)
[2019-03-22] MEDS ORDERED: DEXL60CA3 PO (15:15)
[2019-03-22] MEDS ORDERED: LORA-259 PO (15:15)
[2019-03-22] MEDS ORDERED: PALI117D IM (15:15)
[2019-03-22 15:32] LABS: CALCIUM, SERUM 9.1 mg/dL (8.5-10.1); CARBON DIOXIDE 24 mmol/L (21-32); CHLORIDE 101 mmol/L (98-107); CREATININE 0.5 mg/dL (0.6-1.3); GLUCOSE 91 mg/dL (74-106); POTASSIUM 3.7 mmol/L (3.5-5.1); SODIUM SERUM 138 mmol/L (136-145); UREA NITROGEN, BLOOD 11 mg/dL (7-18)
[2019-03-22 15:48] LABS: THYROID STIMULATING HORMONE 0.023 uIU/mL (0.358-3.74)
--- NOTE | 2019-03-22 16:37 | NUR ---
REPORT GIVEN TO NESHA OF TELE UNIT
--- NOTE | 2019-03-22 17:06 | NUR ---
PATIENT DECIDES NOT TO BE ADMITTED. MADE DR RODRIGUEZ AWARE.
--- NOTE | 2019-03-22 17:47 | NUR ---
IV removed. Catheter intact and site benign. Pressure and 4x4 applied to site. No bleeding noted.Patient discharged to home in stable condition. Written and verbal after care instructions given. Patient verbalizes understanding of instruction.
[2019-03-22 17:49] VITALS: BP 131/88
== END 2019-03-22 17:49 | disposition home or self-care (01) ==
LOC: ER 13:35 → TELE1 16:22 → UNDOADMIN 16:22 → ER 17:49
DX: R07.89 Other chest pain (principal); R00.2 Palpitations; F20.9 Schizophrenia, unspecified; R42 Dizziness and giddiness; F41.9 Anxiety disorder, unspecified; I10 Essential (primary) hypertension; E03.9 Hypothyroidism, unspecified; F10.10 Alcohol abuse, uncomplicated; Y90.9 Presence of alcohol in blood, level not specified; Z90.89 Acquired absence of other organs; Z85.850 Personal history of malignant neoplasm of thyroid; Z88.0 Allergy status to penicillin; Z88.8 Allergy status to other drugs, medicaments and biological substances; Z79.899 Other long term (current) drug therapy
CPT/HCPCS: 36415; 71045-TC; 80048-TC; 84439-TC; 84443-TC; 84480; 84484-TC; 85025-TC